=== PATIENT | male | born 2000 | race Caucasian/White ===

== ENCOUNTER 2020-02-03 08:57 | Emergency (ER) | payer OTHER, BC, SELFPAY ==
--- NOTE | ~2020-02-03 | XR_ITS ---
EXAMINATION: XR toe 1st LT min 2V INDICATION: Left first toe pain, initial encounter TECHNIQUE: Four views of the left first toe are obtained. COMPARISON: None available FINDINGS: There is soft tissue swelling of the first toe. On the lateral view, there is a questionabl e cortical defect at the plantar aspect of the first distal phalanx. The joint spaces are maintained. IMPRESSION: 1. Possible puncture defect in the plantar cortex of the first distal phalanx. Reviewed, dictated and finalized at location A.
[2020-02-03 08:58] VITALS: BP 128/67; PULSE 77; RESP 15; TEMP 36.2; O2SAT 100
--- NOTE | 2020-02-03 09:05 | ED.LOWEXIN ---
HPI - Extremity Injury (Lower) General Chief Complaint: Extremity Injury, Lower Stated Complaint: stepped on a nail Time Seen by Provider: 02/03/20 09:05 Source: patient Mode of arrival: ambulatory Limitations: no limitations History of Present Illness HPI Narrative: Patient is a 19-year-old male with a history of asthma who presents for evaluation of left great toe pain. Patient states he was at work when he stepped on a nail and the nail went through his shoe, through his sock and into his left great toe. Patient was able to remove the nail, this injury occurred about 10 hours ago. Patient reports aching pain in the left great toe. No redness or discharge. Patient is not up-to-date on her tetanus. No knee pain. Related Data Allergies Allergy/AdvReac Type Severity Reaction Status Date / Time No Known Allergies Allergy Mild Verified 02/03/20 08:58 Review of Systems Review of Systems: Narrative: CONSTITUTIONAL: Denies fever CARDIOVASCULAR: Denies chest pain RESPIRATORY: Denies cough or dyspnea. GASTROINTESTINAL: Denies abdominal pain SKIN: Denies rash MUSCULOSKELETAL: Denies back pain NEUROLOGIC: Denies headache [facility] Past Medical History Medical History (Updated 02/03/20 @ 10:50 by Daylin Morgan MD) Asthma Social History Social History (Updated 02/03/20 @ 09:56 by Daylin Morgan MD) Alcohol intake: current Alcohol use details: Rarely Substance use: never Gender identity (if verbalized by the patient): Male Exam Narrative: Exam Narrative: GENERAL: Awake, alert, conversant HEAD: Normocephalic, atraumatic. EYES: PERRLA and EOMI. ENT: Nares clear, no rhinorrhea or epistaxis. Mucous membranes moist. NECK: Supple. CHEST: No respiratory distress, breathing even and non labored HEART: Regular rate, sinus rhythm ABDOMEN:Non distended, non tender EXTREMITIES: Normal range of motion. No edema. Puncture wound to the inferior aspect of the left great toe pad. No discharge. No erythema. No deformity. DP pulse 2+. SKIN: Warm, dry, no rash. NEURO:No focal deficits. Alert and oriented x3 Course Vital Signs Vital signs: Vital Signs Temperature 36.2 C L 02/03/20 08:58 Pulse Rate 77 02/03/20 08:58 Respiratory Rate 15 02/03/20 08:58 Blood Pressure 128/67 02/03/20 08:58 Pulse Oximetry 100 02/03/20 08:58 Temperature 36.2 C L 02/03/20 08:58 Pulse Rate 77 02/03/20 08:58 Respiratory Rate 15 02/03/20 08:58 Blood Pressure 128/67 02/03/20 08:58 Pulse Oximetry 100 02/03/20 08:58 MDM - Extremity Injury (Lower) MDM Narrative Medical decision making narrative: Patient with puncture wound to the left great toe. Patient's tetanus was updated. Given this was through the shoe, through the sock this will warrant antibiotics. No sign of severe infection at this point. Patient is neurovascularly intact. Given history of injury over 12 hours ago, not able to secure close follow-up for the patient given holiday, so decision-making occurred we will go ahead and start the patient on ciprofloxacin. I did explain that this can cause tendinopathy but it is usually transient. Patient is willing to take the medication in order to prevent infection. Patient was discharged home in stable condition with pain medication and prescription. Differential Diagnosis Differential diagnosis: Likely other (Toe fracture, puncture wound, infection) Imaging Data Radiologist's impression: ITS Impressions Toe X-Ray 02/03/20 10:08 IMPRESSION: 1. Possible puncture defect in the plantar cortex of the first distal phalanx. Discharge Plan Discharge Clinical Impression: Puncture wound of foot, left Qualifiers: Encounter type: initial encounter Qualified Code(s): S91.332A - Puncture wound without foreign body, left foot, initial encounter Patient Disposition: Home, Self-Care Condition: Stable Instructions: Antibiotic Form, Puncture Wound in the Foot (ED) Additional Instruct
[2020-02-03] MEDS: ACETAMINOPHEN 500 MG TABLET 1000 MG PO (09:55)
[2020-02-03] MEDS: IBUPROFEN 400 MG TABLET PO (09:55)
[2020-02-03] MEDS: TETANUS,DIPHTHERIA,AC PERTUSSIS ADULT (0.5 ML) BOOSTRIX IM (09:56)
[2020-02-03 11:44] VITALS: BP 122/68; PULSE 59; RESP 16; TEMP 36.8; O2SAT 100
== END 2020-02-03 11:45 | disposition home or self-care (01) ==
PROVIDERS: Emergency Provider Emergency Medicine; PCP Pediatrics Adolescent Medicine
DX: S91.332A Puncture wound without foreign body, left foot, initial encounter (principal); J45.909 Unspecified asthma, uncomplicated; W45.0XXA Nail entering through skin, initial encounter; Z23 Encounter for immunization
CPT/HCPCS: 73660; 90471; 90715; 99283; A9270